=== PATIENT | male | born 1960 | race Caucasian/White ===

== ENCOUNTER → 2023-12-28 | Outpatient (CLI) | payer OTHER ==
[2023-12-28 12:30] LABS: Partial Thromboplastin Time 22.9 sec (22.0-30.0); Prothrombin Time 10.7 sec (10.0-12.5)
[2023-12-28 16:10] LABS: Appearance,Urine Clear (Clear); Bilirubin,Urine Negative (Negative); Blood,Urine Negative (Negative); Color,Urine Yellow (Yellow); Ketones,Urine Negative (Negative); Nitrite,Urine Negative (Negative); Urobilinogen,Urine 0.2 E.U./DL
[2023-12-28 16:16] LABS: BUN/Creat Ratio 24.75 Ratio (12.00-20.00); Blood Urea Nitrogen 19.8 mg/dL (9.0-27.0); Chloride 105 mmol/L (96-109); Glucose 169 mg/dL (70-110); Sodium 139 mmol/L (135-145)
[2023-12-28 16:22] LABS: Basophils # (A) 0.08 X 10*3/uL (0.00-0.10); Basophils % (A) 1.2 %; Eosinophils # (A) 0.18 X 10*3/uL (0.04-0.35); Eosinophils % (A) 2.7 %; HCT 45.6 % (39.6-50.0); HGB 15.7 g/dL (13.0-17.0); Lymphocytes # (A) 2.04 X 10*3/uL (0.90-5.00); Lymphocytes % (A) 31.1 %; MCH 29.7 pg (27.0-32.0); MCHC 34.4 g/dL (32.0-37.0); MCV 86.4 FL (80.0-97.0); Mean Platelet Volume 12.3 FL (9.5-12.2); Monocytes # (A) 0.69 X 10*3/uL (0.20-1.00); Monocytes % (A) 10.5 %; NRBC Per 100 WBC 0 X 10*3/uL (0.00-0.01); Neutrophils # (A) 3.56 X 10*3/uL (1.80-7.70); Neutrophils % (A) 54.2 %; Platelet Count 155 X 10*3/uL (140-440); RBC 5.28 X 10*6/uL (4.40-5.60); RDW 12.7 % (11.5-14.5); WBC 6.57 X 10*3/uL (4.50-10.00)
== END | disposition home or self-care (01) ==
LOC: LABPAT 11:44
PROVIDERS: ATTEND Orthopaedic Surgery Orthopaedic Surgery of the Spine
DX: Z01.812 Encounter for preprocedural laboratory examination (principal); Z22.322 Carrier or suspected carrier of Methicillin resistant Staphylococcus aureus; M48.061 Spinal stenosis, lumbar region without neurogenic claudication
CPT/HCPCS: 36415; 80048; 81003; 85025; 85610; 85730; 87070

== ENCOUNTER → 2024-01-03 | Outpatient (CLI) | payer OTHER ==
--- NOTE | 2024-01-03 10:54 | XR ---
EXAMINATION TYPE: XR chest 2V DATE OF EXAM: 01/03/2024 10:36 AM CLINICAL INDICATION:Male, 63 years old with history of Z01.818; [facility] COMPARISON: Chest radiographs from 01/03/2024 TECHNIQUE: XR chest 2V Frontal and lateral views of the chest. FINDINGS: Lungs/Pleura: There is no evidence of pleural effusion, focal consolidation, or pneumothorax. Pulmonary vascularity: Unremarkable. Heart/mediastinum: Cardiomediastinal silhouette is unremarkable. Musculoskeletal: No acute osseous pathology. IMPRESSION: No acute cardiopulmonary disease/process.
== END | disposition home or self-care (01) ==
LOC: LABPAT 10:15
PROVIDERS: ATTEND Orthopaedic Surgery Orthopaedic Surgery of the Spine
DX: Z01.812 Encounter for preprocedural laboratory examination (principal); Z22.322 Carrier or suspected carrier of Methicillin resistant Staphylococcus aureus; M48.00 Spinal stenosis, site unspecified
CPT/HCPCS: 71046; 86850; 86900; 86901

== ENCOUNTER 2024-01-12 05:41 | Observation (INO) | payer OTHER ==
[2024-01-07 15:45] VITALS: BMI 34.4
[2024-01-12] MEDS ORDERED: LIDOCAINE 1% (10MG/ML) FOR IV START INTRADERMA PRN (06:08)
[2024-01-12] MEDS: LACTATED RINGERS 1,000 ML IV SCH (06:16)
[2024-01-12 06:47] LABS: Glucose,Whole Blood 224 mg/dL (70-110)
[2024-01-12] MEDS: ONDANSETRON 4 MG/2 ML VIAL IVP ONE (06:53)
[2024-01-12] MEDS: INSULIN ASPART (NovoLOG) 100 UNIT/ML VIAL SQ ONE (06:58)
[2024-01-12] MEDS ORDERED: PHENYLEPHRINE-0.9% NACL SYG 1,000 MCG/10 ML SYRINGE ONE (07:25)
[2024-01-12] MEDS ORDERED: TRANEXAMIC 1,000 MG/100ML-NACL PREMIX BAG ONE (07:25)
[2024-01-12] MEDS ORDERED: NEOSTIGMINE 1 MG/ML 10 ML VIAL ONE (07:25)
[2024-01-12] MEDS ORDERED: SUCCINYLCHOLINE CHLORIDE 200 MG/10 ML VIAL IV ONE (07:25)
[2024-01-12] MEDS ORDERED: GLYCOPYRROLATE 0.2 MG/ML 2 ML VIAL ONE (07:25)
[2024-01-12] MEDS ORDERED: PROPOFOL 10 MG/ML 20 ML VIAL IV ONE (07:25)
[2024-01-12] MEDS ORDERED: LIDOCAINE 1% INJ 10MG/ML (20 ML MDV) ONE (07:25)
[2024-01-12] MEDS ORDERED: ROCURONIUM 10 MG/ML (5 ML VIAL) IV ONE (07:25)
[2024-01-12] MEDS ORDERED: fentaNYL (PF) 50 MCG/ML 2 ML AMP ONE (07:25)
[2024-01-12] MEDS ORDERED: METOPROLOL TARTRATE 5 MG/5 ML VIAL IVP ONE (07:25)
[2024-01-12] MEDS ORDERED: HYDROmorphone (PF) 1 MG/ML ONE (07:25)
[2024-01-12] MEDS ORDERED: MIDAZOLAM 2 MG/2 ML VIAL ONE (07:25)
[2024-01-12] MEDS ORDERED: KETAMINE HCL IN 0.9 % NACL 50 MG/5 ML SYRINGE ONE (07:25)
[2024-01-12] MEDS: ceFAZolin 1,000 MG in SODIUM CHLORIDE 0.9% IRRIGATIO 1,000 ML IRRIGATION PRN (07:30)
[2024-01-12] MEDS: BUPIVACAINE (PF) 0.25% 30 ML VIAL SQ ONE ×2 (07:54→08:02)
[2024-01-12] MEDS: LIDOCAINE 2%-EPI 1:100,000 20 ML VIAL SQ ONE ×2 (07:54→08:02)
[2024-01-12] MEDS: THROMBIN (BOVINE) 5,000 UNIT VIAL MISCELLANE ONE (07:54)
[2024-01-12 08:43] LABS: Glucose,Whole Blood 175 mg/dL (70-110)
[2024-01-12] MEDS: LACTATED RINGERS 1,000 ML IV ONE ×2 (08:50→11:53)
[2024-01-12] MEDS ORDERED: BENZOCAINE/MENTHOL LOZENG 1 EACH LOZENGE MUCOUS MEM PRN (11:50)
[2024-01-12] MEDS ORDERED: HYDROmorphone 0.5 MG/0.5 ML SYRINGE IVP PRN (11:50)
[2024-01-12] MEDS ORDERED: ONDANSETRON 4 MG/2 ML VIAL IVP PRN (11:51)
[2024-01-12] MEDS ORDERED: SENNOSIDES-DOCUSATE SODIUM 1 EACH TAB PO PRN (11:51)
[2024-01-12] MEDS ORDERED: ACETAMINOPHEN TAB 325 MG TAB PO PRN (11:53)
[2024-01-12] MEDS ORDERED: traMADol 50 MG TAB PO PRN (11:53)
--- NOTE | 2024-01-12 12:02 | P.OP ---
Date of Procedure: 01/12/24 Preoperative Diagnosis: Spinal stenosis L4-5 L5-S1, facet arthrosis L4-5 L5-S1, degenerative disc disease L4-5 L5-S1, disc herniation L4-5 L5-S1, lower extremity radiculopathy, neurogenic claudication, low back pain Postoperative Diagnosis: Same Anesthesia: GETA Pathology: none sent Condition: stable Disposition: PACU Description of Procedure: DESCRIPTION OF PROCEDURE(S): BRIEF OPERATIVE NOTE Preoperative Diagnosis: Spinal stenosis L4-5 L5-S1, facet arthrosis L4-5 L5-S1, degenerative disc disease L4-5 L5-S1, disc herniation L4-5 L5-S1, lower extrem ity radiculopathy, neurogenic claudication, low back pain Postoperative Diagnosis: Spinal stenosis L4-5 L5-S1, facet arthrosis L4-5 L5-S1, degenerative disc disease L4-5 L5-S1, disc herniation L4-5 L5-S1, lower extremity radiculopathy, neurogenic claudication, low back pain Procedure: Laminectomy and wide decompression with bilateral foraminotomies L4-5 L5-S1 Computer CT navigation aided Minimally invasive Posterior lateral decompression and facet fusion L4-5 L5-S1 Minimally invasive Transforaminal lumbar interbody fusion for a 360 fusion L4-5 Discectomy for decompression L4-5 Placement of interbody graft L4-5 Use of computer navigation for fusion L4-5 S1 Local autogenous bone grafting Aspiration of bone marrow from the vertebral body pedicle L4 on the right Use of bone graft extenders Surgeon: Dr. Moran Medical Pathology Teacher: Magdi BERNSTEIN who is present throughout the entire the case persistence during positioning, dissection, exposure, visualization, and all crucial elements of the case as well as closure. Anesthesia: General anesthesia Estimated blood loss: Approximately 150 mL Complications: None apparent Components implanted: K2M Ledy minimally invasive Orgas pedicle screw system withscrews measuring 6.5 mm in diameter to rods one expandable interbody cage with 10 mL of osteo amp bio4 bone graft substitute and 30 mL of the BX bone fibers to supplement the local autogenous bone graft and bone marrow aspirate Disposition: To recovery room in good stable condition. OPERATIVE INDICATIONS The patient is a pleasant 63-year-old male and has had severe issues at their lower extremity in her lower back over the past several years with significant worsening over the past several months. Over the past few months the patient had pain at their back and their lower extremities. The patient is having severe radicular symptoms at their lower extremity with weakness. Had worsening symptoms particular on the left greater than the right. The patient is having significant pain in their back. They are unable to obtain any comfort. We did aggressive conservative treatment with medications therapy and interventional pain management however thery were not having any relief. The patient also showed evidence of a severe stenosis particularly at L4-5 and at the foramen at L5-S1 with disc protrusion at each level contributing to the stenosis. The patient has been through conservative treatment. He was not having any prolonged benefit despite aggressive conservative care we discussed various treatment options including surgery, and the patient wishes to proceed with surgery We discussed the risk, patient's alternatives and benefits of surgery including but not limited to, risk of bleeding risk of infection, risk of need for further surgery, risk of decreased, loss of motion, muscle function, malunion nonunion, hardware failure, nerve damage, paralysis, heart attack, blindness and . They understood issues with the current pandemic and the possibility of exposure. OPERATIVE SUMMARY After discussing all the risks, patient alternatives and benefits at length, the patient elected to proceed with surgical intervention, signed informed consent, and presented for their procedure. The patient was seen and examined in the preoperative holding area and the surgical site was marked. The patient was given antibiotics and brought to the operating room. The patient was sedated and intubated by anesthesia in standard fashion. The patient was positioned on to the operating room table in a prone position on the appropriate frame which was well-padded and well molded. We were careful to pad any bony prominences and pressure points. We were careful to maintain the patient's cervical spine and good neutral alignment and position throughout. The patient was prepped and draped in a normal standard fashion. An appropriate timeout and keystone protocol performed. We were able to proceed with the surgery. The local wound area was infiltrated with local anesthetic. Over the right iliac crest I was able to make small stab incisions and establish a guidepin screw fixation to the iliac crest 2 on the right. I was able place the computer referencing device over the guidepins to establish an appropriate reference point for the Ziem CT navigation. We then were able to place patient in an appropriate drape and do a navigation spin for visualization and 3-D reconstruction of the lumbar spine. I was able utilize C-arm guidance and navigation to establish appropriate position over the pedicles bilaterally at the appropriate levels at L4-L5 and S1. With the appropriate levels confirmed was able to make small incisions over the appropriate pedicle sites bilaterally. Utilizing the computer navigation device I was able to establish bony landmarks at the right iliac crest for a bony reference point for the navigation device. I was able to establish a Jamshidi needle over the lateral aspect of the pedicle and advanced the trocar into the pedicle being careful not to breech superiorly inferiorly medially or laterally using computer navigation device. Position was confirmed regularly with AP and lateral images on C-arm and with the computer navigation device at the appropriate levels bilaterally. I was able to establish the trocar into the pedicle appropriately into the posterior aspect of the vertebral body bilaterally at the appropriate levels. This was done at each of the pedicle positions and each of the vertebrae. At the superior vertebrae I was able to take approximately 15 mL of bone aspiration for use later in the case to supplement the allograft and autograft bone. I was able place the guidewire into the trocar and into the vertebral body appropriately under C-arm guidance. Dissection was taken down over the wire to the appropriate starting position for the screw placed. The appropriate length screw was chosen, threaded over the guidewire and screwed appropriately into the pedicle and vertebral body under C-arm guidance in excellent alignment and position with good bony purchase. At the S1 screw on the right we did a second spin to evaluate as it had some stimulation and had to reposition the screw. It had excellent alignment position with excellent bony purchase and no evidence of further stimulation at 20 mA. All of the screws were checked and found to have good alignment position and no evidence of stimulation this is done at each of the screw sites at the appropriate levels at L4-L5 and S1. With the screws intact I extended the incision to connect the screw hole sites on the most symptomatic side on the left. I dissected down to establish access over the pars and lamina to the base of the spinous process. I was able to expose the facet joint. The capsule the facet was taken down and showed some facet arthrosis at the joint. I was able to use a combination of curettes and Kerrison rongeurs and a high-speed drill to take down the facet joint and do a facetectomy. I was able get excellent foraminal decompression and central decompression with undermining across midline to perform a laminectomy centrally and contralaterally. I was able get good central decompression. The ligamentum flavum was taken down to further decompress centrally and at bilateral neural foramen. I was able to expose the disc space and visualize the traversing nerve root. Note was made of some disc protrusion and disc herniation that was abutting the traversing nerve root at the level causing further compression of the nerve root. I was able to establish a annulotomy at the appropriate level protecting soft tissue and neural structures. Note was made of some disc desiccation at the disc. There is disc herniation and I had to perform further decompression of the disc beyond that of discectomy for the fusion. I performed a complete discectomy with accommodation of curettes and rasps and scrapers. I was able get good endplate preparation at the disc space. I sized for the appropriate size interbody spacer protecting the soft tissue and neural structures. The wound was copiously irrigated and suctioned dry. There is no evidence of any dural tear or leak. I was able to pack the disc space with local autogenous bone graft as well as a small amount of bone graft which was also placed into the interbody cage itself. Protecting the soft tissue structures and neural structures I was able place the interbody cage in good alignment and good position with good fit and fill at the interbody space. Position was confirmed with C-arm guidance. At L5-S1 the vertebrae was seated deep into the pelvis. There is considerable disc loss and near complete disc height collapse. I was not able to access the disc at L5-S1 though I was able to get good bilateral laminectomy and decompression with foraminotomy and partial facetectomy to get decompression over the foramen and nerve roots. I felt we had good stability with the screws and with the inaccessibility of the disc, as well as the good decompression, I chose to forego the TLIF at L5-S1. Good hemostasis maintained. There is no evidence of any dural tear or leak. The wound was irrigated and suctioned dry. With the hardware intact, intraoperative C-arm imaging was again taken which showed good alignment and position of the hardware at the appropriate levels at L4-L5 and S1. We were then able to measure, contour and place the rods and appropriate hardware bilaterally. I was able to place capcrews, tighten them down, and torque them with the torque screwdriver appropriately. With this intact I was able to place the local autogenous bone graft with additional bone graft enhancer as necessary into the posterior lateral gutters over the decorticated transverse processes and facet joints on the contralateral side. The remainder of the bone graft was placed over the facet joint on the contralateral side after taking down the facet joint capsule. With the bone graft intact, a stable construct, and good decompression at the appropriate levels from L4-S1, we were able to proceed with closure. Good hemostasis was maintained. There is no evidence of dural tear or leak. The fascia was closed for a watertight closure. he subcuticular tissue was closed with absorbable suture. The wound was cleaned and dried and dressed with the appropriate dressing. The drapes were broken down. The patient was gently rolled back onto their hospital bed being careful to maintain their cervical spine and good neutral alignment and position. They were woken up by anesthesia, extubated, and brought to the recovery room in good stable condition. The patient will be admitted to the hospital for appropriate postoperative care, medical management and monitoring. We will continue to follow them closely about the postoperative course.
[2024-01-12 12:13] LABS: Glucose,Whole Blood 175 mg/dL (70-110)
[2024-01-12] MEDS: HYDROmorphone 0.5 MG/0.5 ML SYRINGE IVP PRN (13:29)
[2024-01-12] MEDS: LACTATED RINGERS 950 ML IV ONE (13:52)
[2024-01-12] MEDS: CYCLOBENZAPRINE 10 MG TAB PO PRN (14:34)
[2024-01-12] MEDS ORDERED: DEXTROSE 50% SYRINGE 50 ML IVP PRN ×2 (14:57)
--- NOTE | 2024-01-12 15:10 | P.CONS ---
History of Present Illness - Reason for Consult Consult date: 01/12/24 - History of Present Illness Patient is a 63-year-old male with bzj-evugsyz-zujkidlpx diabetes mellitus type 2, hypertension, and dyslipidemia who presented to the hospital for elective L4- S1 decompression and fusion due to spinal stenosis. He tolerated the procedure well without any postoperative complications. Patient seen and examined at bedside with family present. He complains that his back feels tight and like he needs to stand and stretch. He denies any lightheadedness, dizziness, chest pain, shortness of breath. He denies any recent illnesses such as cough, cold, fever, flu, vomiting, diarrhea. His diabetes is typically fairly well-controlled. Most of his random blood sugars are near 160 but sometimes can get up to 220. He states his last A1c was around 7.5. Vital signs reviewed General: nontoxic, mild distress due to pain, appears at stated age Derm: warm, dry Eyes: EOMI, no lid lag, anicteric sclera ENT: Nose and ears atraumatic Cardiovascular: S1S2 reg, no murmur, no edema Lungs: clear to auscultation bilateral, no rhonchi, no rales, no wheeze, no accessory muscle use Abdominal: soft, nontender to palpation, no guarding Ext: no gross muscle atrophy, no contractures Neuro: CN II-XII grossly intact, No focal neuro deficits Psych: Alert, oriented, appropriate affect Assessment/Plan: 63-year-old male status post L4-S1 decompression and fusion Diabetes mellitus type 2 -Hold metformin and glipizide. -Sliding scale insulin -Follow blood sugars -Consistent carb diet -As blood sugar improves anticipate resuming metformin and Glucophage Hypertension Dyslipidemia -Losartan/hydrochlorothiazide 50-12.51 tablet daily -Fenofibrate 160 mg daily -Lipitor 10 mg daily Class II obesity Imaging: None new Data Review: Labs reviewed with preop hemoglobin 15.7 and creatinine 0.8 Thank you for allowing us to participate in the care of this pleasant patient. Do not hesitate to contact us with questions. Someone can be reached from the [facility] hospitalist group all hours of the day at [phone] or via [email or web address]. This dictation was prepared using [employer] voice recognition software. Though every attempt is made to correct errors during dictation some may still exist. Past Medical History Past Medical History: Diabetes Mellitus, Hyperlipidemia, Hypertension, Prostate Disorder Additional Past Medical History / Comment(s): elevated PSA-shadow on prostate,spinal stenosis History of Any Multi-Drug Resistant Organisms: None Reported Past Surgical History: Cholecystectomy, Hernia Repair Additional Past Surgical History / Comment(s): prostate bx 01-04-24,umbilical hernia repair Past Anesthesia/Blood Transfusion Reactions: No Reported Reaction Additional Past Anesthesia/Blood Transfusion Reaction / Comm: no hx blood transfusion Past Psychological History: No Psychological Hx Reported Smoking Status: Never smoker Past Alcohol Use History: Occasional - Past Family History Mother Family Medical History: Cancer Father Family Medical History: Cancer Medications and Allergies Home Medications Medication Instructions Recorded Confirmed Type Acetaminophen [Tylenol Arthritis] 650 mg PO Q8H PRN 01/07/24 01/12/24 History Ascorbic Acid [Vitamin C] 1,000 mg PO DAILY 01/07/24 01/12/24 History Aspirin 81 mg PO DAILY 01/07/24 01/12/24 History Cholecalciferol [Vitamin D3 (25 25 mcg PO DAILY 01/07/24 01/12/24 History Mcg = 1000 Iu)] Ezetimibe/Simvastatin 1 each PO DAILY 01/07/24 01/12/24 History [Ezetimibe/Simvastatin 10-20 mg] Fenofibrate 160 mg PO DAILY 01/07/24 01/12/24 History Losartan-Hctz 50-12.5 mg [Hyzaar 1 tab PO DAILY 01/07/24 01/12/24 History 50-12.5] Meloxicam [Mobic] 15 mg PO DAILY 01/07/24 01/12/24 History Multivitamins, Thera [Multivitamin 1 tab PO DAILY 01/07/24 01/12/24 History (formulary)] Tamsulosin HCl [Flomax] 0.4 mg PO HS 01/07/24 01/12/24 History glipiZIDE [Glucotrol] 10 mg PO AC-BID 01/07/24 01/12/24 History metFORMIN HCL 500 mg PO BID 01/07/24 01/12/24 History traMADol HCl [Ultram] 50 mg PO Q6HR PRN 01/07/24 01/12/24 History Allergies Allergy/AdvReac Type Severity Reaction Status Date / Time No Known Allergies Allergy Verified 01/12/24 06:15 Physical Exam Osteopathic Statement: *. No significant issues noted on an osteopathic structural exam other than those noted in the History and Physical/Consult. Vitals: Vital Signs Temp Pulse Resp BP Pulse Ox 01/12/24 14:07 101 H 16 147/82 92 L 01/12/24 13:50 95 01/12/24 13:45 102 H 13 157/86 100 01/12/24 13:30 106 H 17 138/80 100 01/12/24 13:15 102 H 16 161/88 98 01/12/24 13:00 105 H 16 160/98 99 01/12/24 12:48 107 H 16 136/77 98 01/12/24 12:33 107 H 15 148/93 97 01/12/24 12:18 104 H 14 122/83 97 01/12/24 12:03 99 F 101 H 16 151/88 90 L 01/12/24 06:35 97.2 F L 98 18 159/84 97 Intake and Output 01/12/24 01/12/24 01/12/24 06:59 14:59 22:59 Intake Total 200 4850 Output Total 600 Balance 200 4250 Intake: IV 200 4850 Output: Urine 450 Estimated Blood Loss 150 Other: Weight 99.6 kg 99.6 kg Results Labs: Abnormal Lab Results - Last 24 Hours (Table) 01/12/24 01/12/24 01/12/24 Range/Units 06:43 08:41 12:11 POC Glucose (mg/dL) 224 H 175 H 175 H (70-110) mg/dL
[2024-01-12 16:28] LABS: Glucose,Whole Blood 178 mg/dL (70-110)
[2024-01-12] MEDS: HYDROmorphone 1 MG/ML 1 ML SYRINGE IVP PRN (16:53)
[2024-01-12] MEDS: INSULIN ASPART (NovoLOG) 100 UNIT/ML VIAL SQ SCH (16:54)
[2024-01-12] MEDS ORDERED: metFORMIN 500 MG TAB PO SCH (17:30)
[2024-01-12] MEDS ORDERED: glipiZIDE 10 MG TAB PO SCH (17:30)
[2024-01-12 20:12] LABS: Glucose,Whole Blood 200 mg/dL (70-110)
--- NOTE | 2024-01-12 20:50 | FL ---
EXAMINATION TYPE: FL guidance operating room, XR lumbar spine 2 or 3V DATE OF EXAM: 01/12/2024 Comparison: None Clinical History: 63-year-old male L4-5/L5-S1 Fusion Findings: L4-5/L5-S1 Fusion Dr. Moran 44sec fluoro time 8 images provided. Impression: Intraoperative fluoroscopy as above.
[2024-01-12] MEDS: TAMSULOSIN 0.4 MG CAP.ER.24H PO SCH (20:54)
[2024-01-12] MEDS: SODIUM CHLORIDE 0.9% 1,000 ML IV SCH (21:06)
[2024-01-12] MEDS: HYDROcodone/APAP 5-325MG 1 EACH TAB PO PRN (23:03)
[2024-01-13 06:09] LABS: Glucose,Whole Blood 205 mg/dL (70-110)
--- NOTE | 2024-01-13 07:59 | P.PN ---
Progress Note - Text Progress Note Date: 01/13/24 Postoperative day #1 Patient is seen and examined today at bedside. The patient has some pain around the surgical site as expected. Pain is being controlled with medication. He is not having any nausea or vomiting. He says that the Das got kinked last night but it is flowing fine now. He has been up to a chair yesterday. He has not yet been up with physical therapy. He feels his legs are doing well Physical Exam Afebrile with stable vital signs Abdomen is soft nontender. Chest has good excursion deep and space expiration The incision site is clean dry and intact. No erythema there is no purulence. Extremities have not had neurologic change from prior to surgery. Dressings are intact without saturation Calves and thighs were soft nontender without evidence of DVT. He has sustained dorsiflexion plantarflexion EHL intact Assessment/Plan Postoperative day #1 status post minimally invasive decompression and fusion L4- 5 L5-S1 for his severe spinal stenosis with neurogenic claudication and radiculopathy Patient is progressing as expected from the surgery. We will try to get the Das out today so that he can start to urinate on his own. We will continue to increase the patient's mobilization with therapy. We will continue pain control with oral or IV medications. Hopefully he will get more mobile and the pain will be controlled for discharge home in a day or 2. We'll continue to follow patient closely.
[2024-01-13] MEDS: ASPIRIN 81 MG PO SCH (08:51)
[2024-01-13] MEDS: SENNOSIDES-DOCUSATE SODIUM 1 EACH TAB PO SCH (08:51)
[2024-01-13] MEDS: MULTIVITAMINS, THERA 1 EACH TAB PO SCH (08:51)
[2024-01-13] MEDS: CHOLECALCIFEROL 25 MCG (1000 IU) TABLET PO SCH (08:51)
[2024-01-13] MEDS: LOSARTAN-HCTZ 50-12.5 MG 1 EACH TAB PO SCH (08:51)
[2024-01-13] MEDS: EZETIMIBE 10 MG TAB PO SCH (08:51)
[2024-01-13] MEDS: ASCORBIC ACID 500 MG TAB PO SCH (08:52)
[2024-01-13] MEDS: FENOFIBRATE 160 MG TAB PO SCH (08:52)
[2024-01-13] MEDS: ATORVASTATIN 10 MG TAB PO SCH (08:52)
[2024-01-13 10:58] LABS: BUN/Creat Ratio 14.11 Ratio (12.00-20.00); Basophils # (A) 0.04 X 10*3/uL (0.00-0.10); Basophils % (A) 0.4 %; Blood Urea Nitrogen 12.7 mg/dL (9.0-27.0); Calcium 9.2 mg/dL (8.7-10.3); Carbon Dioxide 23.4 mmol/L (21.6-31.8); Chloride 103 mmol/L (96-109); Eosinophils % (A) 0.9 %; Glucose 209 mg/dL (70-110); HCT 40.6 % (39.6-50.0); HGB 13.8 g/dL (13.0-17.0); Lymphocytes # (A) 1.23 X 10*3/uL (0.90-5.00); Lymphocytes % (A) 11.3 %; MCH 29.7 pg (27.0-32.0); MCV 87.3 FL (80.0-97.0); Mean Platelet Volume 11.9 FL (9.5-12.2); Monocytes # (A) 1.35 X 10*3/uL (0.20-1.00); Monocytes % (A) 12.4 %; NRBC Per 100 WBC 0 X 10*3/uL (0.00-0.01); Neutrophils # (A) 8.13 X 10*3/uL (1.80-7.70); Neutrophils % (A) 74.6 %; Platelet Count 137 X 10*3/uL (140-440); Potassium 3.8 mmol/L (3.5-5.5); RBC 4.65 X 10*6/uL (4.40-5.60); RDW 13.1 % (11.5-14.5); Sodium 139 mmol/L (135-145); WBC 10.89 X 10*3/uL (4.50-10.00)
[2024-01-13 11:36] LABS: Glucose,Whole Blood 256 mg/dL (70-110)
--- NOTE | 2024-01-13 14:02 | P.PN ---
Subjective Progress Note Date: 01/13/24 Hospital course: Patient is a very pleasant 63-year-old male with mci-ntqpxqs-vqcveydve diabetes mellitus type 2, hypertension, and dyslipidemia who presented to the hospital for elective L4-S1 decompression and fusion due to spinal stenosis. He tolerated the procedure well without any postoperative complications. Physical exam: Patient seen and fully evaluated at bedside this morning. Patient reports ambulating in the [place] with physical therapy. He currently appears to be having moderate pain. Das catheter remains in place, discussed with RN pulling Das catheter to perform voiding challenge and patient's need for pain medication at this time. Vital signs reviewed and stable. General: Nontoxic, no distress and appears stated age. Derm: Skin warm and dry, normal coloration for ethnicity. Head: Atraumatic, normocephalic and symmetric. Eyes: EOMs intact, no lid lag, and anicteric sclera Mouth: no lip lesions, mucus membranes moist Cardiovascular: Tachycardic rate and regular rhythm with normal S1S2, no murmur, positive posterior tibial pulses bilaterally, and cap refill < 2 seconds. Lungs: Respirations even, regular, and unlabored on room air. Lungs CTA bilaterally, no rhonchi, no rales, no wheezing, and no accessory muscle usage. Abdominal: soft, nontender to palpation, no guarding, no appreciable organomegaly. Das catheter in place. Ext: ROM intact. No gross muscle atrophy, no edema, no contractures Neuro: Speech clear, face symmetrical and CN II-XII grossly intact with no noted focal neuro deficits Psych: Alert and oriented to person, place, time, and situation. Appropriate and pleasant affect. Assessment and Plan of Care: 63-year-old male status post L4-S1 decompression and fusion -Management by primary admitting orthospine surgery team including DVT prophylaxis, pain management, wound/dressing management, and PT/OT. Diabetes mellitus type 2 with hyperglycemia -Continue to hold metformin and glipizide and maintain glycemic protocol with NovoLog sliding scale. -Consistent carb diet -Hemoglobin A1c 7.9%. -As blood sugar improves anticipate resuming metformin and Glucophage Postoperative Tachycardia -Patient with postoperative tachycardia. -Appears regular, patient asymptomatic of chest pain or any other cardiac com plaints. -Order placed for telemetry monitoring and EKG to further evaluate. Postoperative thrombocytopenia -Preoperative platelet count was 155 and postoperative platelet count is 137. Stable, no need for intervention or further orders at this time. Hypertension Dyslipidemia -Continue daily medication regimen with losartan/hydrochlorothiazide 50-12.51 mg tablet daily, Fenofibrate 160 mg daily, and Lipitor 10 mg daily Class II obesity with BMI of 34.4 kg/m Imaging: -No new imaging to review. Data Reviewed: -Vital signs reviewed. Blood pressure 135/79, heart rate 112, respiratory rate 17, temp 98.7 F, and SpO2 of 95% on room air -Postoperative Labs reviewed. CBC showing preop hemoglobin 15.7 and postoperative hemoglobin of 13.8, Preoperative platelet count of 155 and postoperative platelet count of 137. BMP showing slightly elevated anion gap of 12.6 otherwise normal findings. Blood glucose was elevated again this morning at 209. Hemoglobin A1c 7.9%. Thank you for allowing us to participate in the care of this pleasant patient. Do not hesitate to contact us with questions. Someone can be reached from the [facility] hospitalist group all hours of the day at [phone] or via perfect serve. Patient was seen independently by Nurse Pracitioner. This document was prepared using [employer] dictation software. Please allow for errors in stave log cut off saw operator, while rare they do occur. I reviewed the documentation as provided by the LEX above, who is the original author of this note. I agree with the documented assessment and plan, with the following changes: none Objective - Vital Signs Vital signs: Vital Signs Temp 98.1 F 01/13/24 02:00 Pulse 115 H 01/13/24 02:00 Resp 13 01/13/24 02:00 BP 143/86 01/13/24 02:00 Pulse Ox 98 01/13/24 02:00 FiO2 Intake & Output 01/12/24 01/13/24 01/13/24 18:59 06:59 18:59 Intake Total 4850 Output Total 600 Balance 4250 Weight 99.6 kg Intake: IV 4850 Output: Urine 450 Estimated Blood Loss 150 Other: Voiding Method Indwelling Catheter - Labs CBC & Chem 7: 01/13/24 07:30 01/13/24 07:30 Labs: Abnormal Lab Results - Last 24 Hours (Table) 01/12/24 01/12/24 01/12/24 Range/Units 08:41 12:11 16:27 POC Glucose (mg/dL) 175 H 175 H 178 H (70-110) mg/dL 01/12/24 01/13/24 Range/Units 20:10 06:07 POC Glucose (mg/dL) 200 H 205 H (70-110) mg/dL
[2024-01-13 16:53] VITALS: RESP 18
[2024-01-13 16:57] LABS: Glucose,Whole Blood 207 mg/dL (70-110)
[2024-01-13] MEDS: HYDROcodone/APAP 7.5-325MG 1 EACH TAB PO PRN (18:22)
[2024-01-13] MEDS: traMADol 50 MG TAB PO PRN (20:05)
[2024-01-13 20:38] LABS: Glucose,Whole Blood 195 mg/dL (70-110)
[2024-01-14 05:46] LABS: Glucose,Whole Blood 192 mg/dL (70-110)
[2024-01-14 08:08] VITALS: BP 128/78; PULSE 106; TEMP 98
--- NOTE | 2024-01-14 08:36 | P.DS ---
Providers Date of admission: 01/13/24 07:36 Expected date of discharge: 01/14/24 Attending physician: Que Moran Consults: 01/12/24 11:51 Consult Physician Routine Consulting Provider: Taylor De La O Consult Reason/Comments: Medical management Do you want consulting provider notified?: Yes Primary care physician: Rio Fitzpatrick MD - Discharge Diagnosis(es) (1) Status post lumbar spinal fusion Current Visit: Yes Status: Acute (2) Spinal stenosis, lumbar region with neurogenic claudication Current Visit: Yes Status: Acute (3) Lumbar facet arthropathy Current Visit: Yes Status: Acute (4) Lumbar degenerative disc disease Current Visit: Yes Status: Acute (5) Lumbar herniated disc Current Visit: Yes Status: Acute (6) Radiculopathy with lower extremity symptoms Current Visit: Yes Status: Acute (7) Low back pain Current Visit: Yes Status: Acute (8) Hypertension Current Visit: Yes Status: Acute (9) Hyperlipidemia Current Visit: Yes Status: Acute (10) Type 2 diabetes mellitus Current Visit: Yes Status: Acute (11) Obesity (BMI 30.0-34.9) Current Visit: Yes Status: Acute Hospital Course: This is a pleasant 63-year-old male who presented with L4-5 and L5-S1 spinal stenosis, facet arthrosis, degenerative disc disease, and disc herniation with lower extremity radiculopathy, neurogenic claudication, and low back pain who failed outpatient conservative therapy. He was admitted for an L4-5 and L5-S1 minimally invasive posterior lateral decompression and fusion with transforaminal lumbar interbody fusion. The patient tolerated the procedure well and did well postoperatively. He has been able to mobilize independently with assistance of a walker without difficulty. He does have a walker for home. He is very happy with his progress. His back pain has been adequately controlled. He is not complaining of any lower extremity weakness or radiculopathy. He feels he is ready for discharge today. Condition on day of discharge stable. Patient will be discharged home. Patient was cleared preoperatively for surgery by Dr. Fitzpatrick. Patient currently denies any nausea, vomiting, fever, or chills. Patient is eating and voiding freely without difficulty. Patient may shower Optifoam dressing intact. Patient may remove Optifoam dressing on Wednesday and shower without a dressing at that time. Patient should refrain from driving until at least after their first follow-up appointment in the office. Patient should avoid excessive bending, lifting, and twisting; no lifting greater than 10 pounds. MAPS has been reviewed today, 01/14/2024, with an Overall Overdose Risk Score of 280. An "Opiod Start Talking" Form has been signed and placed in the patient's chart. A prescription has been written for hydrocodone 7.5 mg / 325 mg, 1 tab, every 4 hours, as needed for acute pain, dispense #42. Prescriptions were also sent for cyclobenzaprine 10 mg, 1 tab, 3 times daily, as needed for muscle spasm, dispense #60 and Senokot-S, 1 tab, twice daily, as needed for constipation, dispense #60. Prescriptions are sent to the [facility] pharmacy located within [facility] per request of the patient. Patient's other medical diagnoses include hypertension, hyperlipidemia, type 2 diabetes. Patient should avoid anti-inflammatory medications over the next 6 weeks postoperatively. Patient should avoid tramadol while taking hydrocodone. Physical Exam on day of discharge: Patient is awake, alert, and oriented 3 Vital signs stable Good chest excursion with deep inspiration and expiration Abdomen soft nontender No signs or symptoms of DVT; no calf pain Extensor hallucis longus, plantarflexion, and dorsiflexion positive sustained bilateral lower extremities Incision is clean, dry, and intact; no erythema, purulence, or signs of infe ction Optifoam dressings intact Procedures: L4-5 and L5-S1 minimally invasive posterior lateral decompression and fusion with transforaminal lumbar interbody fusion Patient Condition at Discharge: Stable Plan - Discharge Summary Discharge Rx Participant: No New Discharge Prescriptions: New Cyclobenzaprine [Flexeril] 10 mg PO TID PRN #60 tab PRN Reason: Muscle Spasm HYDROcodone/APAP 7.5-325MG [[place] 7.5-325] 1 each PO Q4HR PRN #42 tab PRN Reason: Pain Sennosides-Docusate Sodium [Senokot-S] 1 tab PO BID PRN #60 tablet PRN Reason: Constipation No Action Cholecalciferol [Vitamin D3 (25 Mcg = 1000 Iu)] 25 mcg PO DAILY Multivitamins, Thera [Multivitamin (formulary)] 1 tab PO DAILY traMADol HCl [Ultram] 50 mg PO Q6HR PRN PRN Reason: Pain Tamsulosin HCl [Flomax] 0.4 mg PO HS Losartan-Hctz 50-12.5 mg [Hyzaar 50-12.5] 1 tab PO DAILY Fenofibrate 160 mg PO DAILY Ezetimibe/Simvastatin [Ezetimibe/Simvastatin 10-20 mg] 1 each PO DAILY Aspirin 81 mg PO DAILY Ascorbic Acid [Vitamin C] 1,000 mg PO DAILY Acetaminophen [Tylenol Arthritis] 650 mg PO Q8H PRN PRN Reason: Pain Meloxicam [Mobic] 15 mg PO DAILY glipiZIDE [Glucotrol] 10 mg PO AC-BID metFORMIN HCL 500 mg PO BID Discharge Medication List Acetaminophen [Tylenol Arthritis] 650 mg PO Q8H PRN 01/07/24 [History] Ascorbic Acid [Vitamin C] 1,000 mg PO DAILY 01/07/24 [History] Aspirin 81 mg PO DAILY 01/07/24 [History] Cholecalciferol [Vitamin D3 (25 Mcg = 1000 Iu)] 25 mcg PO DAILY 01/07/24 [History] Ezetimibe/Simvastatin [Ezetimibe/Simvastatin 10-20 mg] 1 each PO DAILY 01/07/24 [History] Fenofibrate 160 mg PO DAILY 01/07/24 [History] Losartan-Hctz 50-12.5 mg [Hyzaar 50-12.5] 1 tab PO DAILY 01/07/24 [History] Meloxicam [Mobic] 15 mg PO DAILY 01/07/24 [History] Multivitamins, Thera [Multivitamin (formulary)] 1 tab PO DAILY 01/07/24 [History] Tamsulosin HCl [Flomax] 0.4 mg PO HS 01/07/24 [History] glipiZIDE [Glucotrol] 10 mg PO AC-BID 01/07/24 [History] metFORMIN HCL 500 mg PO BID 01/07/24 [History] traMADol HCl [Ultram] 50 mg PO Q6HR PRN 01/07/24 [History] Cyclobenzaprine [Flexeril] 10 mg PO TID PRN #60 tab 01/14/24 [Rx] HYDROcodone/APAP 7.5-325MG [[place] 7.5-325] 1 each PO Q4HR PRN #42 tab 01/14/24 [Rx] Sennosides-Docusate Sodium [Senokot-S] 1 tab PO BID PRN #60 tablet 01/14/24 [Rx] Follow up Appointment(s)/Referral(s): Magdi Ham, GEO [PHYSICIAN SLITTER HELPER] - 2 Weeks (Patient may follow-up with Magdi Ham PA-C or Dr. De Moran at [facility] in 2-3 weeks following discharge. ) Activity/Diet/Wound Care/Special Instructions: 1. Patient may shower with Optifoam dressing intact. 2. Patient may remove Optifoam dressing in 2 days and shower without a dressing at that time. 3. Patient should refrain from driving until at least after their first follow- up appointment in the office. 4. Patient should avoid excessive bending, twisting, lifting; avoid overhead lifting; no lifting greater than 10 pounds 5. Take medications as prescribed 6. Patient may utilize walker to aid in ambulation as needed 7. Patient should avoid anti-inflammatory medications over the next 6 weeks postoperatively 8. Do not soak in tub Discharge Disposition: HOME SELF-CARE
[2024-01-14] MEDS: HYDROcodone/APAP 5-325MG 1 EACH TAB PO STA (11:32)
--- NOTE | 2024-01-14 13:21 | P.PN ---
Subjective Progress Note Date: 01/14/24 Hospital course: Patient is a very pleasant 63-year-old male with [id number] diabetes mellitus type 2, hypertension, and dyslipidemia who presented to the hospital for elective L4-S1 decompression and fusion due to spinal stenosis. He tolerated the procedure well without any postoperative complications. Physical exam: Patient seen and fully evaluated at bedside this morning. Patient was sitting up in chair at bedside, he is dressed and ready to go this morning. Patient reports very eager to get home as he has a 2-hour drive. He currently reports pain is managed but was concerned over drive home. Order will be placed for a 1 time additional dose of [place] to be administered at time of discharge. Patient reports urinating without any difficulties and has been ambulating with PT. Vital signs reviewed and stable. General: Nontoxic, no distress and appears stated age. Derm: Skin warm and dry, normal coloration for ethnicity. Head: Atraumatic, normocephalic and symmetric. Eyes: EOMs intact, no lid lag, and anicteric sclera Mouth: no lip lesions, mucus membranes moist Cardiovascular: Tachycardic rate and regular rhythm with normal S1S2, no murmur, positive posterior tibial pulses bilaterally, and cap refill < 2 seconds. Lungs: Respirations even, regular, and unlabored on room air. Lungs CTA bilaterally, no rhonchi, no rales, no wheezing, and no accessory muscle usage. Abdominal: soft, nontender to palpation, no guarding, no appreciable organomegaly. Das catheter in place. Ext: ROM intact. No gross muscle atrophy, no edema, no contractures Neuro: Speech clear, face symmetrical and CN II-XII grossly intact with no noted focal neuro deficits Psych: Alert and oriented to person, place, time, and situation. Appropriate and pleasant affect. Assessment and Plan of Care: 63-year-old male status post L4-S1 decompression and fusion -Management by primary admitting orthospine surgery team including DVT prophylaxis, pain management, wound/dressing management, and PT/OT. Diabetes mellitus type 2 with hyperglycemia -Continue to hold metformin and glipizide and maintain glycemic protocol with NovoLog sliding scale. -Consistent carb diet -Hemoglobin A1c 7.9%. -As blood sugar improves anticipate resuming metformin and Glucophage Postoperative sinus tachycardia, believed to be secondary to pain -Patient with postoperative tachycardia. -Patient remains asymptomatic of chest pain or any other cardiac complaints. -EKG reviewed showing sinus tachycardia at 117 bpm with no noted T wave or ST abnormalities showing no signs of acute ischemia upon personal review and interpretation. Postoperative thrombocytopenia -Preoperative platelet count was 155 and postoperative platelet count is 137. Stable, no need for intervention or further orders at this time. Hypertension Dyslipidemia -Continue daily medication regimen with losartan/hydrochlorothiazide 50-12.51 mg tablet daily, Fenofibrate 160 mg daily, and Lipitor 10 mg daily Class II obesity with BMI of 34.4 kg/m Data Reviewed: -Vital signs reviewed. Blood pressure 128/78, heart rate 106, respiratory rate 18, temp 98.0 F, and SpO2 of 96% on room air. -EKG reviewed showing sinus tachycardia at 117 bpm with no noted T wave or ST abnormalities showing no signs of acute ischemia upon personal review and interpretation. -Postoperative Labs reviewed. CBC showing preop hemoglobin 15.7 and postoperative hemoglobin of 13.8, Preoperative platelet count of 155 and posto perative platelet count of 137. BMP showing slightly elevated anion gap of 12.6 otherwise normal findings. Blood glucose was elevated again this morning at 209. Hemoglobin A1c 7.9%. From a medical perspective patient cleared for discharge at this time once cleared by primary admitting orthopedic surgery team.. Discussed with patient on the importance of monitoring blood glucose levels closely and following a heart healthy carb consistent diet. Patient was instructed on checking blood glucose levels twice daily for the next 2 weeks and documenting these findings and a daily log/journal to bring with him to his next PCPs appointment. Thank you for allowing us to participate in the care of this pleasant patient. Do not hesitate to contact us with questions. Someone can be reached from the [facility] hospitalist group all hours of the day at [phone] or via perfect serve. Patient was seen independently by Nurse Pracitioner. This document was prepared using My e[employer] dictation software. Please allow for errors in brew house supervisor, while rare they do occur. I reviewed the documentation as provided by the LEX above, who is the original author of this note. I agree with the documented assessment and plan, with the following changes: none Objective - Vital Signs Vital signs: Vital Signs Temp 98.0 F 01/14/24 06:54 Pulse 106 H 01/14/24 06:54 Resp 18 01/14/24 06:54 BP 128/78 01/14/24 06:54 Pulse Ox 96 01/14/24 06:54 FiO2 Intake & Output 01/13/24 01/14/24 01/14/24 18:59 06:59 18:59 Output Total 4300 1005 Balance -4300 -1005 Output: Urine 4300 1005 Uretheral (Das) 525 Other: Voiding Method Indwelling Catheter Urinal - Labs CBC & Chem 7: 01/13/24 07:30 01/13/24 07:30 Labs: Abnormal Lab Results - Last 24 Hours (Table) 01/13/24 01/13/24 01/13/24 Range/Units 07:30 07:30 07:30 WBC 10.89 H (4.50-10.00) X 10*3/uL Plt Count 137 L (140-440) X 10*3/uL Neutrophils # 8.13 H (1.80-7.70) X 10*3/uL Monocytes # 1.35 H (0.20-1.00) X 10*3/uL Anion Gap 12.60 H (4.00-12.00) mmol/L Glucose 209 H (70-110) mg/dL POC Glucose (mg/dL) (70-110) mg/dL Hemoglobin A1c 7.9 H (<=6.0) % 01/13/24 01/13/24 01/13/24 Range/Units 11:35 16:56 20:35 WBC (4.50-10.00) X 10*3/uL Plt Count (140-440) X 10*3/uL Neutrophils # (1.80-7.70) X 10*3/uL Monocytes # (0.20-1.00) X 10*3/uL Anion Gap (4.00-12.00) mmol/L Glucose (70-110) mg/dL POC Glucose (mg/dL) 256 H 207 H 195 H (70-110) mg/dL Hemoglobin A1c (<=6.0) % 01/14/24 Range/Units 05:45 WBC (4.50-10.00) X 10*3/uL Plt Count (140-440) X 10*3/uL Neutrophils # (1.80-7.70) X 10*3/uL Monocytes # (0.20-1.00) X 10*3/uL Anion Gap (4.00-12.00) mmol/L Glucose (70-110) mg/dL POC Glucose (mg/dL) 192 H (70-110) mg/dL Hemoglobin A1c (<=6.0) %
== END 2024-01-14 12:01 | disposition home or self-care (01) ==
LOC: OR 05:41 → 4SSUR 11:44 → OR 01-13 07:36
PROVIDERS: ADMIT Orthopaedic Surgery Orthopaedic Surgery of the Spine; ATTEND Orthopaedic Surgery Orthopaedic Surgery of the Spine
DX: M51.16 Intervertebral disc disorders with radiculopathy, lumbar region (principal); M51.17 Intervertebral disc disorders with radiculopathy, lumbosacral region; M47.26 Other spondylosis with radiculopathy, lumbar region; M47.27 Other spondylosis with radiculopathy, lumbosacral region; M48.062 Spinal stenosis, lumbar region with neurogenic claudication; M48.07 Spinal stenosis, lumbosacral region; I97.191 Other postprocedural cardiac functional disturbances following other surgery; R00.0 Tachycardia, unspecified; D69.6 Thrombocytopenia, unspecified; I10 Essential (primary) hypertension; E78.5 Hyperlipidemia, unspecified; E11.65 Type 2 diabetes mellitus with hyperglycemia; E66.9 Obesity, unspecified; Z68.34 Body mass index [BMI] 34.0-34.9, adult; Z79.1 Long term (current) use of non-steroidal anti-inflammatories (NSAID); Z79.4 Long term (current) use of insulin; Z79.82 Long term (current) use of aspirin; Z79.84 Long term (current) use of oral hypoglycemic drugs; Z79.899 Other long term (current) drug therapy
CPT/HCPCS: 96376 ×3; 96361 ×2; 96365; 96366; 96375; 93005; 97161; 86891; 80048; 85025; 83036; 72100; 63030; 63035 ×2; 22859 ×2; G0378 ×2; C1713 ×2; C1762; J0690 ×2; J2405; J1170 ×4; J0665

== ENCOUNTER → 2024-10-11 | Outpatient (CLI) | payer OTHER ==
[2024-10-11 09:10] LABS: INR 0.9 (<1.2); Prothrombin Time 10.5 sec (10.0-12.5)
[2024-10-11 09:11] LABS: Partial Thromboplastin Time 21.3 sec (22.0-30.0)
[2024-10-11 15:09] LABS: HCT 46.3 % (39.6-50.0); HGB 15.2 g/dL (13.0-17.0); MCH 28.4 pg (27.0-32.0); MCHC 32.8 g/dL (32.0-37.0); MCV 86.5 FL (80.0-97.0); Mean Platelet Volume 11.7 FL (9.5-12.2); NRBC Per 100 WBC 0 X 10*3/uL (0.00-0.01); Platelet Count 171 X 10*3/uL (140-440); RBC 5.35 X 10*6/uL (4.40-5.60); RDW 13.2 % (11.5-14.5); WBC 7.16 X 10*3/uL (4.50-10.00)
[2024-10-11 15:32] LABS: ALT 30 U/L (10-49); AST 23 U/L (14-35); Albumin 4.8 g/dL (3.8-4.9); Albumin/Globulin Ratio 2.29 Ratio (1.60-3.17); Alkaline Phosphatase 68 U/L (41-126); BUN/Creat Ratio 32.38 Ratio (12.00-20.00); Blood Urea Nitrogen 25.9 mg/dL (9.0-27.0); Carbon Dioxide 19.7 mmol/L (21.6-31.8); Chloride 108 mmol/L (96-109); Chol/HDL Ratio 3.44 Ratio; Globulin 2.1 g/dL (1.6-3.3); Glucose 210 mg/dL (70-110); LDL Cholesterol,Calculated 62.5 mg/dL (0.0-131.0); Potassium 4.7 mmol/L (3.5-5.5); Sodium 140 mmol/L (135-145); Total Bilirubin 0.3 mg/dL (0.3-1.2); Total Protein 6.9 g/dL (6.2-8.2)
[2024-10-11 20:27] LABS: Microalbumin Creatinine Ratio <17 mg/g Cr (0-30); Urine Creatinine 72.2 mg/dL (39.0-259.0)
== END | disposition home or self-care (01) ==
LOC: LABWHC1 08:15
PROVIDERS: ATTEND Family Medicine
DX: E11.9 Type 2 diabetes mellitus without complications (principal)
CPT/HCPCS: 36415; 80053; 80061; 82043; 82570; 83036; 85027; 85610; 85730; 86850; 86900; 86901; 87070; 93005

== ENCOUNTER → 2024-10-11 | Outpatient (CLI) | payer OTHER | END | disposition home or self-care (01) | LOC: LABPAT 08:12 | PROVIDERS: ATTEND Orthopaedic Surgery | DX: Z53.9 Procedure and treatment not carried out, unspecified reason (principal) ==

== ENCOUNTER 2024-10-17 08:51 | Day surgery (SDC) | payer OTHER ==
[~2024-10-17 08:51] MED LIST: TRANEXAMIC 1,000 MG/100ML-NACL 1,000 MG in SALINE 1 100ML.BAG IVPB PRN
[2024-10-17] MEDS ORDERED: HYDROmorphone 0.5 MG/0.5 ML SYRINGE IVP PRN (09:53)
[2024-10-17] MEDS ORDERED: LACTATED RINGERS 1,000 ML IV SCH (09:53)
[2024-10-17] MEDS: IV FLUID CONTINUATION 1,000 ML IV ONE (10:01)
[2024-10-17 10:15] VITALS: RESP 16; TEMP 97.2
[2024-10-17 10:23] LABS: Glucose,Whole Blood 193 mg/dL (70-110)
[2024-10-17] MEDS: ACETAMINOPHEN TAB 500 MG TAB PO PRN (10:33)
[2024-10-17] MEDS: MELOXICAM 7.5 MG TAB PO PRN (10:33)
[2024-10-17] MEDS: GABAPENTIN 300 MG CAP PO PRN (10:33)
[2024-10-17] MEDS: ONDANSETRON 4 MG/2 ML VIAL IVP ONE (10:34)
[2024-10-17] MEDS: DEXAMETHASONE SOD PHOSPHATE 4 MG/ML 1 ML VIAL IV ONE (10:34)
[2024-10-17] MEDS: MIDAZOLAM 2 MG/2 ML VIAL IVP ONE (10:57)
[2024-10-17 11:09] VITALS: BP 132/68; PULSE 91
--- NOTE | 2024-10-18 13:23 | P.ANPRN ---
Procedure Note - Anesthesia - Nerve Block Performed Right [place] Single Time Out Performed: Yes Date of Procedure: 10/17/24 Procedure Start Time: 10:56 Procedure Stop Time: 11:01 Location of Patient: PreOp Indication: Acute Post-Operative Pain, Requested by Surgeon Sedation Type: Sedate with meaningful contact maintained Preparation: Sterile Prep Position: Supine Needle Types: Pajunk Needle Gauge: 21 Ultrasound used to visualize needle placement: Yes Ultrasound used to observe medication spread: Yes Blood Aspirated: No Pain Paresthesia on Injection Noted: No Resistance on Injection: Normal Image Stored and Saved: Yes Events: Uneventful and Well Tolerated (Ropivacaine 0.5% 20 cc plus dexamethasone 4 mg)
== END 2024-10-17 13:30 | disposition home or self-care (01) ==
LOC: OR 08:51
PROVIDERS: ATTEND Orthopaedic Surgery
DX: M16.11 Unilateral primary osteoarthritis, right hip (principal); Z53.9 Procedure and treatment not carried out, unspecified reason
CPT/HCPCS: J2250; J1100; J2405

== ENCOUNTER 2024-10-17 13:20 | Day surgery (SDC) | payer OTHER ==
[2024-10-17] MEDS: IV FLUID CONTINUATION 1,000 ML IV ONE (13:44)
[2024-10-17 14:09] LABS: Glucose,Whole Blood 208 mg/dL (70-110)
--- NOTE | 2024-10-17 14:25 | P.HPIHPCON ---
History of Present Illness H&P Date: 10/17/24 Chief Complaint: Bladder neck contracture This is a 64-year-old male with history of prostate cancer, underwent robotic radical prostatectomy by Dr. Morataya in May 2024. Patient developed urinary retention recently, he underwent attempted catheter placement which was uns uccessful, subsequently required urethral dilation and placement of a catheter over a guidewire at [place]. He underwent a subsequent cystoscopy that showed evidence of quite a dense bladder neck contracture. Patient also had symptomatic hip pain and will require a hip replacement. I discussed with him I do recommend proceeding with addressing the bladder neck contracture prior with proceeding with hip replacement. discussed the risk of infection with prolonged catheter use. At this time he understood that we have to address the bladder neck contracture prior to his hip replacement. He is scheduled for transurethral incision of a bladder neck contracture by Dr. Morataya in November, but patient would like to address the bladder neck contracture sooner given his symptomatic hip pain. Discussed with him the option of incision of a bladder neck contracture, he is aware of the risk which includes but not limited to bleeding, infection, urinary incontinence, risk of recurrence. He understood all the risk and agreed to proceed Consent for Procedure: I have explained the operation/procedure to the patient, including the risks, benefits, side effects, alternative therapies (including not receiving the proposed treatment or service), the likelihood of the patient achieving his/her goals, and potential recuperation problems for the procedure/sedation/analgesia, as well as any blood products, if indicated. I also explained to the patient the risks, benefits and side effects of the alternatives, as well as the risks related to not receiving the proposed procedure, care, treatment, or services. Past Medical History Past Medical History: Cancer, Diabetes Mellitus, Hyperlipidemia, Hypertension, Osteoarthritis (OA), Prostate Disorder Additional Past Medical History / Comment(s): hx. of recent prostate cancer-had surg., since this surg. has had problems w/urinating since urethral opening is now very small, no current catheter, spinal stenosis History of Any Multi-Drug Resistant Organisms: None Reported Past Surgical History: Back Surgery, Cholecystectomy, Hernia Repair, Prostate Surgery Additional Past Surgical History / Comment(s): prostate bx 01-04-24,umbilical hernia repair, back surg. 01/11, prostatectomy 2023 Past Anesthesia/Blood Transfusion Reactions: Previous Problems w/ Anesthesia Additional Past Anesthesia/Blood Transfusion Reaction / Comment(s): no hx blood transfusion, had vitals crash w/prostate surg. @[facility] in May., was told due to positioning during surgery, surg. was aborted, was told to lose a little weight, saw card. who found no problems, surgery 2nd time everything was fine Smoking Status: Never smoker - Past Family History Mother Family Medical History: Cancer Father Family Medical History: Cancer Medications and Allergies Home Medications Medication Instructions Recorded Confirmed Type Acetaminophen [Tylenol Arthritis] 650 mg PO Q8H PRN 01/07/24 10/17/24 History Ascorbic Acid [Vitamin C] 1,000 mg PO DAILY 01/07/24 10/17/24 History Aspirin 81 mg PO DAILY 01/07/24 10/17/24 History Cholecalciferol [Vitamin D3 (25 25 mcg PO DAILY 01/07/24 10/17/24 History Mcg = 1000 Iu)] Ezetimibe/Simvastatin 1 each PO DAILY 01/07/24 10/17/24 History [Ezetimibe/Simvastatin 10-20 mg] Fenofibrate 160 mg PO DAILY 01/07/24 10/17/24 History Losartan-Hctz 50-12.5 mg [Hyzaar 1 tab PO DAILY 01/07/24 10/17/24 History 50-12.5] Meloxicam [Mobic] 15 mg PO DAILY 01/07/24 10/17/24 History Multivitamins, Thera [Multivitamin 1 tab PO DAILY 01/07/24 10/17/24 History (formulary)] glipiZIDE [Glucotrol] 10 mg PO AC-BID 01/07/24 10/17/24 History metFORMIN HCL 500 mg PO BID 01/07/24 10/17/24 History Allergies Allergy/AdvReac Type Severity Reaction Status Date / Time No Known Allergies Allergy Verified 10/17/24 13:52 Surgical - Exam Vital Signs Temp Pulse Resp BP Pulse Ox 98.2 F 85 16 145/56 95 10/17/24 13:32 10/17/24 13:32 10/17/24 13:32 10/17/24 13:32 10/17/24 13:32 - General no distress, no pain - Eyes normal ocular movement, no pale - ENT normal nares, normal mucosa - Respiratory normal expansion, normal respiratory effort - Abdomen Abdomen: soft, non tender Results - Labs Abnormal Lab Results - Last 24 Hours (Table) 10/17/24 Range/Units 14:08 POC Glucose (mg/dL) 208 H (70-110) mg/dL Assessment and Plan Assessment: OR for cystoscopy, transurethral incision of a bladder neck contracture. Surgery will be performed by Dr. Coates
[2024-10-17] MEDS ORDERED: fentaNYL (PF) 50 MCG/ML 2 ML AMP ONE (14:33)
[2024-10-17] MEDS ORDERED: MIDAZOLAM 2 MG/2 ML VIAL ONE (14:33)
[2024-10-17] MEDS ORDERED: PHENYLEPHRINE 10 MG/ML VIAL ONE (14:33)
[2024-10-17] MEDS ORDERED: LIDOCAINE 1% INJ 10MG/ML (20 ML MDV) ONE (14:33)
[2024-10-17] MEDS ORDERED: PROPOFOL 10 MG/ML 20 ML VIAL IV ONE (14:33)
[2024-10-17] MEDS: SODIUM CHLORIDE 0.9% 100 ML with ceFAZolin 2,000 MG IV ONE (14:36)
--- NOTE | 2024-10-17 15:11 | P.OP ---
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 He was to have a hip arthroplasty by Dr. Adkins today however historically he was having problems urinating. As it turns out he had a robotic assisted radical prostatectomy several months ago by Dr Morataya. He developed a vesicle neck contracture. It had been dilated once only to have the symptoms of obstruction return. It was recommended that he have a vesicle neck incision however the patient wanted his hip arthroplasty done as soon as possible due to pain. He came today for this procedure and when identified the urologic issues he canceled the hip arthroplasty and consulted us. We discussed with the patient and explained to him that he wanted to have this urologic problem dealt with before hip arthroplasty so that he did not develop an infection of his artificial hip. We recommended incision of the vesicle neck contracture his previous dilation did not work. He comes for this procedure. He understands increased risk of incontinence developing. Description of Procedure: Patient brought to the operating suite. He was given a general anesthetic. He is placed in lithotomy position with a sterile prep and drape. Patient brought to the operating suite. He is given a general anesthetic. He is placed in lithotomy position with a sterile prep and drape. I first have to do a urethral meatoplasty with the [place] urethrotome as I cannot fit the cystoscope into the urethra. After I do the meatotomy I passed the scope into the bulbar urethra. I looked through the external sphincter and see a very tight vesicle neck contracture probably 4-5 [place]. I thus introduced the direct vision urethrotome and I cut with the straight knife at 12:00 but I am still unable to advance the scope into the bladder. I then make a cut at 6:00 and I am able to eventually pass the scope into the bladder. I remove the scope and passed a 16 Armenian coud tip cath into the bladder with clear urine return. There is no notable bleeding. The patient is awakened returned recovery in good condition. He will be discharged home on recovery and follow in the office in 3 days for catheter removal.
[2024-10-17] MEDS ORDERED: ACETAMINOPHEN TAB 325 MG TAB PO PRN (18:54)
[2024-10-17] MEDS ORDERED: DEXTROSE 50% SYRINGE 50 ML IVP PRN ×2 (19:01)
[2024-10-17 20:45] LABS: Glucose,Whole Blood 371 mg/dL (70-110)
[2024-10-17] MEDS: metFORMIN 500 MG TAB PO SCH (21:14)
[2024-10-17] MEDS: INSULIN ASPART (NovoLOG) 100 UNIT/ML VIAL SQ SCH (21:15)
[2024-10-18 02:41] VITALS: RESP 17
[2024-10-18 06:17] LABS: Glucose,Whole Blood 210 mg/dL (70-110)
[2024-10-18] MEDS: glipiZIDE 10 MG TAB PO SCH (06:41)
[2024-10-18 07:35] VITALS: BP 118/72; PULSE 85; TEMP 97.7
[2024-10-18] MEDS: ATORVASTATIN 10 MG TAB PO SCH (08:28)
[2024-10-18] MEDS: FENOFIBRATE 160 MG TAB PO SCH (08:28)
[2024-10-18] MEDS: CHOLECALCIFEROL 25 MCG (1000 IU) TABLET PO SCH (08:28)
[2024-10-18] MEDS: LOSARTAN 50 MG TAB PO SCH (08:28)
[2024-10-18] MEDS: ASPIRIN 81 MG PO SCH (08:28)
[2024-10-18] MEDS: MELOXICAM 7.5 MG TAB PO SCH (08:28)
[2024-10-18] MEDS: EZETIMIBE 10 MG TAB PO SCH (08:28)
[2024-10-18] MEDS: ASCORBIC ACID 500 MG TAB PO SCH (08:28)
[2024-10-18] MEDS: MULTIVITAMINS, THERA 1 EACH TAB PO SCH (08:28)
--- NOTE | 2024-10-18 10:49 | P.PN ---
Subjective Progress Note Date: 10/18/24 First postoperative day from an aborted right hip arthroplasty and a subsequent cystoscopy and incision of vesicle neck contracture. The patient was kept in the hospital overnight due to numbness of his right leg as a result of his nerve block prior to his hip arthroplasty which was canceled. He has done well he is feeling well. His urine has cleared. His weakness and numbness are gone. Objective - Vital Signs Vital signs: Vital Signs Temp 97.7 F 10/18/24 06:50 Pulse 85 10/18/24 06:50 Resp 17 10/18/24 06:50 BP 118/72 10/18/24 06:50 Pulse Ox 98 10/18/24 06:50 FiO2 Intake & Output 10/17/24 10/18/24 10/18/24 18:59 06:59 18:59 Intake Total 1000 Output Total 5 1800 Balance 995 -1800 Weight 95.254 kg Intake: IV 1000 Output: Urine 1800 Coude 1800 Estimated Blood Loss 5 Other: Voiding Method Indwelling Catheter Indwelling Catheter - Labs Labs: Abnormal Lab Results - Last 24 Hours (Table) 10/17/24 10/17/24 10/18/24 Range/Units 14:08 20:43 03:31 POC Glucose (mg/dL) 208 H 371 H (70-110) mg/dL Hemoglobin A1c 7.3 H (<=6.0) % 10/18/24 Range/Units 06:16 POC Glucose (mg/dL) 210 H (70-110) mg/dL Hemoglobin A1c (<=6.0) % Assessment and Plan Assessment: Impression: Successful incision a vesicle neck contracture Recommendations: Catheter should remain in place until Wednesday. He can come to the office here in [place] and have it removed or he can it removed by his primary care or urologist in [place] on Wednesday. We have discussed the postoperative care and urinary status after this procedure.
[2024-10-18 11:12] LABS: Glucose,Whole Blood 161 mg/dL (70-110)
--- NOTE | 2024-10-18 11:32 | P.HPIM ---
History of Present Illness H&P Date: 10/18/24 Chief Complaint: Bladder neck obstruction Patient is a 64-year-old male with history of prostate cancer, underwent robotic radical prostatectomy by Dr. Morataya in May 2024. Patient recently developed urinary retention and underwent a cystoscopy that showed evidence of a bladder neck contracture. Patient underwent a cystoscopy and transurethral incision of a bladder neck contracture yesterday afternoon by Dr. Coates. No estimated blood loss. Per surgery note, patient will follow-up in office for 3 days for catheter removal. Patient is being admitted to internal medicine service for medical management. Patient was seen at bedside. He currently reports no urina ry symptoms. No dysuria, foul smell, cloudy urine. Patient has been cleared from urology and catheter should remain in place until Wednesday. No other concerns at this time. No fever, chills, chest pain, shortness of breath, nausea or vomiting. Vitals on admission temperature 97.7, pulse rate 85, respiratory 17, blood pressure 118/72, O2 sat 98% on room air Review of systems: Pertinent positives and negatives as discussed in HPI, a complete review of systems was performed and all other systems are negative. PMH: Prostate cancer underwent robotic radical prostatectomy in May 2024 PSH: Back surgery, cholecystectomy, hernia repair, prostate surgery Allergies: No known drug allergies Physical examination: Vital signs reviewed General: nontoxic, no distress, appears at stated age Derm: warm, dry, intact Head: atraumatic, normocephalic, symmetric Eyes: EOMI, anicteric sclera Mouth: no lip lesion, mucus membranes moist Cardiovascular: S1 S2 reg, no murmur Lungs: CTA bilateral, no rhonchi, no rales, no accessory muscle use Abdominal: soft, non-tender to palpation Extremities: No cyanosis, clubbing, or pedal edema. Neuro: Alert, Oriented, Gross neurological examination did not reveal any focal deficits. Psych: well appearing, appropriate affect Assessment/Plan: Patient is a 64-year-old male with history of prostate cancer, underwent robotic radical prostatectomy by Dr. Morataya in May 2024. Patient recently developed urinary retention and underwent a cystoscopy that showed evidence of a bladder neck contracture. Patient will be admitted to internal medicine service. Active: #. Status post cystoscopy and transurethral incision of bladder neck contracture 10/17/2024 Catheter to remain in place until Wednesday Patient to follow-up with Dr. Coates to have the catheter removed or can be removed by his primary care or urologist in [place] on Wednesday The patient is admitted with an anticipated less than 2 midnight stay for evaluation of urinary retention Discussed with: Family Anticipated discharge place: Home Past Medical History Past Medical History: Cancer, Diabetes Mellitus, Hyperlipidemia, Hypertension, Osteoarthritis (OA), Prostate Disorder Additional Past Medical History / Comment(s): hx. of recent prostate cancer-had surg., since this surg. has had problems w/urinating since urethral opening is now very small, no current catheter, spinal stenosis History of Any Multi-Drug Resistant Organisms: None Reported Past Surgical History: Back Surgery, Cholecystectomy, Hernia Repair, Prostate Surgery Additional Past Surgical History / Comment(s): prostate bx 01-04-24,umbilical hernia repair, back surg. 01/11, prostatectomy 2023 Past Anesthesia/Blood Transfusion Reactions: Previous Problems w/ Anesthesia Additional Past Anesthesia/Blood Transfusion Reaction / Comment(s): no hx blood transfusion, had vitals crash w/prostate surg. @[facility] in , was told due to positioning during surgery, surg. was aborted, was told to lose a little weight, saw card. who found no problems, surgery 2nd time everything was fine Past Psychological History: No Psychological Hx Reported Smoking Status: Never smoker Past Alcohol Use History: Occasional Additional Past Alcohol Use History / Comment(s): occas cigar Past Drug Use History: None Reported - Past Family History Mother Family Medical History: Cancer Father Family Medical History: Cancer Medications and Allergies Home Medications Medication Instructions Recorded Confirmed Type Acetaminophen [Tylenol Arthritis] 650 mg PO Q8H PRN 01/07/24 10/17/24 History Ascorbic Acid [Vitamin C] 1,000 mg PO DAILY 01/07/24 10/17/24 History Aspirin 81 mg PO DAILY 01/07/24 10/17/24 History Cholecalciferol [Vitamin D3 (25 25 mcg PO DAILY 01/07/24 10/17/24 History Mcg = 1000 Iu)] Ezetimibe/Simvastatin 1 each PO DAILY 01/07/24 10/17/24 History [Ezetimibe/Simvastatin 10-20 mg] Fenofibrate 160 mg PO DAILY 01/07/24 10/17/24 History Losartan-Hctz 50-12.5 mg [Hyzaar 1 tab PO DAILY 01/07/24 10/17/24 History 50-12.5] Meloxicam [Mobic] 15 mg PO DAILY 01/07/24 10/17/24 History Multivitamins, Thera [Multivitamin 1 tab PO DAILY 01/07/24 10/17/24 History (formulary)] glipiZIDE [Glucotrol] 10 mg PO AC-BID 01/07/24 10/17/24 History metFORMIN HCL 500 mg PO BID 01/07/24 10/17/24 History Allergies Allergy/AdvReac Type Severity Reaction Status Date / Time No Known Allergies Allergy Verified 10/17/24 13:52 Physical Exam Vitals: Vital Signs Temp Pulse Pulse Resp BP Pulse Ox 10/18/24 06:50 97.7 F 85 17 118/72 98 10/18/24 01:28 97.6 F 93 17 129/76 97 10/17/24 19:07 98.1 F 105 H 18 125/80 96 10/17/24 16:12 89 18 126/82 96 10/17/24 15:54 97 16 130/81 96 10/17/24 15:44 92 16 121/64 93 L 10/17/24 15:29 96 16 135/76 94 L 10/17/24 15:14 97.4 F L 101 H 12 142/83 95 10/17/24 13:32 98.2 F 85 16 145/56 95 Intake and Output 10/17/24 10/18/24 10/18/24 22:59 06:59 14:59 Intake Total 100 Output Total 805 1000 Balance -705 -1000 Intake: IV 100 Output: Urine 800 1000 Coude 800 1000 Estimated Blood Loss 5 Other: Voiding Method Indwelling Catheter Indwelling Catheter Weight 95.254 kg Results Labs: Abnormal Lab Results - Last 24 Hours (Table) 10/17/24 10/17/24 10/18/24 Range/Units 14:08 20:43 03:31 POC Glucose (mg/dL) 208 H 371 H (70-110) mg/dL Hemoglobin A1c 7.3 H (<=6.0) % 10/18/24 Range/Units 06:16 POC Glucose (mg/dL) 210 H (70-110) mg/dL Hemoglobin A1c (<=6.0) % Thrombosis Risk Factor Assmnt - Choose All That Apply Each Factor Represents 1 point: Obesity (BMI >25) Each Risk Factor Represents 2 Points: Age 61-74 years, Malignancy Thrombosis Risk Factor Assessment Total Risk Factor Score: 5 Thrombosis Risk Factor Assessment Level: High Risk
--- NOTE | 2024-10-18 11:36 | P.DS ---
Providers Expected date of discharge: 10/18/24 Attending physician: Amy Pabon Consults: 10/17/24 17:00 Consult Physician Routine Consulting Provider: Iglesia Coates Consult Reason/Comments: REQUESTING UROLOGIC CONSULT DUE TO RECENT SURGERY. Do you want consulting provider notified?: Already Contacted Primary care physician: Rio Fitzpatrick MD Hospital Course: Hospital course: Patient is a 64-year-old male with history of prostate cancer, underwent robotic radical prostatectomy by Dr. Morataya in May 2024. Patient recently developed urinary retention and underwent a cystoscopy that showed evidence of a bladder neck contracture. Patient underwent a cystoscopy and transurethral incision of a bladder neck contracture yesterday afternoon by Dr. Coates. No estimated blood loss. Per surgery note, patient will follow-up in office for 3 days for catheter removal. Patient is being admitted to internal medicine service for medical management. Patient was seen at bedside. He currently reports no urinary symptoms. No dysuria, foul smell, cloudy urine. Patient has been cleared from urology and catheter should remain in place until Wednesday. No other concerns at this time. No fever, chills, chest pain, shortness of breath, nausea or vomiting. Vitals on admission temperature 97.7, pulse rate 85, respiratory 17, blood pressure 118/72, O2 sat 98% on room air. Patient was seen on 10/18/2027. He is medically stable to be discharged back home. His catheter will remain in place until Wednesday. He can follow-up with Dr. Coates to have the catheter removed or can be removed by his primary care or urologist in [place] on Wednesday. No changes were made to patient's home medications. Physical examination at discharge: GENERAL: This is a 64-year-old in no apparent distress at the time of examination. Pleasant and cooperative. HEENT: Head is atraumatic, normocephalic. Pupils are equal, round, and reactive to light. Sclerae anicteric. Conjunctivae are clear. Mucus membranes of the mouth are moist. Neck is supple. RESPIRATORY: Clear to auscultation. No wheezes, rales, or rhonchi. No use of accessory muscles. Patient maintaining oxygen saturation greater than 92%. No chest wall tenderness is noted on palpation or with deep breathing. CARDIOVASCULAR: Regular rate and rhythm. S1 and S2 noted. No systolic or diastolic murmur auscultated. No JVD noted. No S3 or S4 noted. GASTROINTESTINAL: No distention noted. Abdomen soft and round. Normal active bowel sounds auscultated x 4 quadrants. No pain or tenderness noted upon palpation. INTEGUMENTARY: No cyanosis. No jaundice. No rashes noted. No cellulitis noted. EXTREMITIES: 2+ peripheral pulses. No evidence of peripheral edema. No calf tenderness noted. NEUROLOGIC: Cranial nerves II-XII intact. PSYCHIATRIC: Awake, alert, and oriented X 3. Appropriate affect. Intact judgement and insight. Plan - Discharge Summary Discharge Rx Participant: No New Discharge Prescriptions: Continue Cholecalciferol [Vitamin D3 (25 Mcg = 1000 Iu)] 25 mcg PO DAILY Multivitamins, Thera [Multivitamin (formulary)] 1 tab PO DAILY Losartan-Hctz 50-12.5 mg [Hyzaar 50-12.5] 1 tab PO DAILY Fenofibrate 160 mg PO DAILY Ezetimibe/Simvastatin [Ezetimibe/Simvastatin 10-20 mg] 1 each PO DAILY Aspirin 81 mg PO DAILY Ascorbic Acid [Vitamin C] 1,000 mg PO DAILY Acetaminophen [Tylenol Arthritis] 650 mg PO Q8H PRN PRN Reason: Pain Meloxicam [Mobic] 15 mg PO DAILY glipiZIDE [Glucotrol] 10 mg PO AC-BID metFORMIN HCL 500 mg PO BID Discharge Medication List Acetaminophen [Tylenol Arthritis] 650 mg PO Q8H PRN 01/07/24 [History] Ascorbic Acid [Vitamin C] 1,000 mg PO DAILY 01/07/24 [History] Aspirin 81 mg PO DAILY 01/07/24 [History] Cholecalciferol [Vitamin D3 (25 Mcg = 1000 Iu)] 25 mcg PO DAILY 01/07/24 [History] Ezetimibe/Simvastatin [Ezetimibe/Simvastatin 10-20 mg] 1 each PO DAILY 01/07/24 [History] Fenofibrate 160 mg PO DAILY 01/07/24 [History] Losartan-Hctz 50-12.5 mg [Hyzaar 50-12.5] 1 tab PO DAILY 01/07/24 [History] Meloxicam [Mobic] 15 mg PO DAILY 01/07/24 [History] Multivitamins, Thera [Multivitamin (formulary)] 1 tab PO DAILY 01/07/24 [History] glipiZIDE [Glucotrol] 10 mg PO AC-BID 01/07/24 [History] metFORMIN HCL 500 mg PO BID 01/07/24 [History] Follow up Appointment(s)/Referral(s): Iglesia Coates MD [STAFF PHYSICIAN] - 10/20/24 (home with mcgrath, Follow-up with Urology on wednesday to remove Mcgrath. Office stated they will call patient with time of appointment.) Patient Instructions/Handouts: *Surgery [facility] - Mcgrath Catheter Instructions, *Surgery [facility] - (Anesthesia) Discharge Instructions Outpatient Surgery, Mcgrath Catheter Placement and Care (ED), Mcgrath Catheter Placement and Care (DC), Peripheral Nerve Block (DC), Cystoscopy (DC), How to Change a Catheter Drainage Bag (DC) Discharge Disposition: HOME SELF-CARE
== END 2024-10-18 11:42 | disposition home or self-care (01) ==
LOC: OR 13:20 → 4SSUR 15:05 → OR 10-18 11:42
PROVIDERS: ATTEND Hospitalist
DX: N32.0 Bladder-neck obstruction (principal); E11.9 Type 2 diabetes mellitus without complications; E78.5 Hyperlipidemia, unspecified; I10 Essential (primary) hypertension; Z85.46 Personal history of malignant neoplasm of prostate
CPT/HCPCS: 52276; 83036; J2250; J0690; J2003; J3010; J2704; J2371

== ENCOUNTER 2024-11-28 07:40 | Day surgery (SDC) | payer OTHER ==
--- NOTE | 2024-11-28 07:37 | P.HPIHPCON ---
History of Present Illness H&P Date: 11/28/24 Chief Complaint: Bladder neck contracture This is a 65-year-old male with history of bladder neck contracture following robotic radical prostatectomy that was done by Dr. Morataya at [facility]. He underwent incision of a bladder neck contracture on October 17. He noticed significant improvement of his voiding symptoms but more recently continues to have difficulty voiding, at this point he is only able to dribble small amount of urine, with an elevated residual. Of note he underwent hip replacement on November 07. Discussed with him given his difficulty voiding and elevated residual we will proceed with a cystoscopy and dilation of a bladder neck contracture versus incision. Risk of bleeding, infection, urinary incontinence, recurrent strictures was also discussed. He understood all the risk and agreed to proceed Consent for Procedure: I have explained the operation/procedure to the patient, including the risks, benefits, side effects, alternative therapies (including not receiving the proposed treatment or service), the likelihood of the patient achieving his/her goals, and potential recuperation problems for the procedure/sedation/analgesia, as well as any blood products, if indicated. I also explained to the patient the risks, benefits and side effects of the alternatives, as well as the risks related to not receiving the proposed procedure, care, treatment, or services. Past Medical History Past Medical History: Cancer, Diabetes Mellitus, Hyperlipidemia, Hypertension, Osteoarthritis (OA), Prostate Disorder Additional Past Medical History / Comment(s): hx. of recent prostate cancer-had surg., since this surg. has had problems w/urinating since urethral opening is now very small, no current catheter, spinal stenosis History of Any Multi-Drug Resistant Organisms: None Reported Past Surgical History: Back Surgery, Cholecystectomy, Hernia Repair, Prostate Surgery Additional Past Surgical History / Comment(s): prostate bx 01-04-24,umbilical hernia repair, back surg. 01/11, prostatectomy 2023 uretheral dilation Past Anesthesia/Blood Transfusion Reactions: Previous Problems w/ Anesthesia Additional Past Anesthesia/Blood Transfusion Reaction / Comment(s): no hx blood transfusion, had vitals crash w/prostate surg. @[facility] in May., was told due to positioning during surgery, surg. was aborted, was told to lose a little weight, saw card. who found no problems, surgery 2nd time everything was fine Smoking Status: Never smoker - Past Family History Mother Family Medical History: Cancer Father Family Medical History: Cancer Medications and Allergies Home Medications Medication Instructions Recorded Confirmed Type Acetaminophen [Tylenol Arthritis] 650 mg PO Q8H PRN 01/07/24 11/23/24 History Ascorbic Acid [Vitamin C] 1,000 mg PO DAILY 01/07/24 11/23/24 History Aspirin 81 mg PO DAILY 01/07/24 11/23/24 History Cholecalciferol [Vitamin D3 (25 25 mcg PO DAILY 01/07/24 11/23/24 History Mcg = 1000 Iu)] Ezetimibe/Simvastatin 1 each PO DAILY 01/07/24 11/23/24 History [Ezetimibe/Simvastatin 10-20 mg] Fenofibrate 160 mg PO DAILY 01/07/24 11/23/24 History Losartan-Hctz 50-12.5 mg [Hyzaar 1 tab PO DAILY 01/07/24 11/23/24 History 50-12.5] Meloxicam [Mobic] 15 mg PO DAILY 01/07/24 11/23/24 History Multivitamins, Thera [Multivitamin 1 tab PO DAILY 01/07/24 11/23/24 History (formulary)] glipiZIDE [Glucotrol] 10 mg PO AC-BID 01/07/24 11/23/24 History metFORMIN HCL 1,000 mg PO BID 01/07/24 11/23/24 History Sennosides [Senokot] 2 tab PO DAILY PRN #60 tablet 11/07/24 11/23/24 Rx Allergies Allergy/AdvReac Type Severity Reaction Status Date / Time No Known Allergies Allergy Verified 11/23/24 14:58 Surgical - Exam - General no distress, no pain - Eyes normal ocular movement, no pale - ENT normal nares, normal mucosa - Abdomen Abdomen: soft, non tender, no distended - Psychiatric oriented to time, oriented to person, oriented to place Assessment and Plan Assessment: OR for cystoscopy and dilation of bladder neck contracture
[~2024-11-28 07:40] MED LIST changes: +HYDROmorphone 0.5 MG/0.5 ML SYRINGE IVP PRN; +LIDOCAINE 1% (10MG/ML) FOR IV START INTRADERMA PRN; -TRANEXAMIC 1,000 MG/100ML-NACL 1,000 MG in SALINE 1 100ML.BAG IVPB PRN; +fentaNYL (PF) 50 MCG/ML 2 ML AMP IVP PRN
[2024-11-28 08:21] VITALS: RESP 18
[2024-11-28] MEDS: LACTATED RINGERS 1,000 ML IV SCH (08:35)
[2024-11-28] MEDS: DEXAMETHASONE SOD PHOSPHATE 4 MG/ML 1 ML VIAL IV ONE (08:36)
[2024-11-28] MEDS: ONDANSETRON 4 MG/2 ML VIAL IVP ONE (08:36)
[2024-11-28] MEDS: MIDAZOLAM 2 MG/2 ML VIAL IV PRN (08:39)
[2024-11-28] MEDS: IV FLUID CONTINUATION 1,000 ML IV ONE (08:42)
[2024-11-28] MEDS ORDERED: LIDOCAINE 1% INJ 10MG/ML (20 ML MDV) ONE (09:12)
[2024-11-28] MEDS ORDERED: fentaNYL (PF) 50 MCG/ML 2 ML AMP ONE (09:12)
[2024-11-28] MEDS ORDERED: PROPOFOL 10 MG/ML 20 ML VIAL IV ONE (09:12)
[2024-11-28] MEDS ORDERED: PHENYLEPHRINE 10 MG/ML VIAL ONE (09:12)
--- NOTE | 2024-11-28 10:08 | P.OP ---
Date of Procedure: 11/28/24 Preoperative Diagnosis: Bladder neck contracture Postoperative Diagnosis: Same Procedure(s) Performed: Cystoscopy, dilation of bladder neck contracture Implants: None Anesthesia: ALICIAA Surgeon: Edinson Villanueva Pathology: none sent Condition: stable Disposition: PACU Indications for Procedure: This is a 65-year-old male with history of bladder neck contracture following robotic radical prostatectomy that was done by Dr. Morataya at [facility]. He underwent incision of a bladder neck contracture on October 17. He noticed significant improvement of his voiding symptoms but more recently continues to have difficulty voiding, at this point he is only able to dribble small amount of urine, with an elevated residual. Of note he underwent hip replacement on November 07. Discussed with him given his difficulty voiding and elevated residual we will proceed with a cystoscopy and dilation of a bladder neck contracture versus incision. Risk of bleeding, infection, urinary incontinence, recurrent strictures was also discussed. He understood all the risk and agreed to procee Operative Findings: Approximately a 4 Kyr[place]z bladder neck contracture Description of Procedure: Patient brought to the operating room, general anesthesia was induced. He was prepped and draped in sterile fashion and placed in the supine position. Next a flexible cystoscope was inserted per urethra, the cystoscope was advanced to the level of the bladder neck, at this point a very narrowed bladder neck was encountered, the size of the bladder neck contracture measured approximately 4 Kyrgyz. At this time I was able to advance a wire through the cystoscope and through the bladder neck contracture and into the bladder. Next the bladder neck contracture was dilated using the S shaped dilators, the S dilators were advanced over the wire starting with 8 K[place]z and going all the way up to 20. At this time the wire was removed and a 18 [place] Das was placed with return of clear urine. Patient tolerated procedure well, he will follow-up in 1 week for cath removal
[2024-11-28] MEDS ORDERED: SENNOSIDES 8.6 MG TAB PO PRN (10:10)
[2024-11-28] MEDS ORDERED: HYDROcodone/APAP 5-325MG 1 EACH TAB PO PRN (10:11)
[2024-11-28] MEDS ORDERED: ONDANSETRON 4 MG/2 ML VIAL IVP PRN (10:13)
[2024-11-28] MEDS ORDERED: SODIUM CHLORIDE 0.9% 1,000 ML IV SCH (10:15)
[2024-11-28 10:42] VITALS: TEMP 98.9
[2024-11-28 10:53] VITALS: BP 123/76; PULSE 91
[2024-11-28] MEDS ORDERED: GLIPIZIDE 10 MG PO SCH (17:30)
[2024-11-28] MEDS ORDERED: HEPARIN SODIUM,PORCINE 5,000 UNIT/ML 1 ML VIAL SQ SCH (21:00)
[2024-11-28] MEDS ORDERED: metFORMIN 500 MG TAB PO SCH (21:00)
[2024-11-29] MEDS ORDERED: [UNRECOGNIZED DRUG - OTHER] PO SCH (09:00)
[2024-11-29] MEDS ORDERED: CHOLECALCIFEROL 25 MCG (1000 IU) TABLET PO SCH (09:00)
[2024-11-29] MEDS ORDERED: LOSARTAN-HCTZ 50-12.5 MG 1 EACH TAB PO SCH (09:00)
[2024-11-29] MEDS ORDERED: FENOFIBRATE 160 MG TAB PO SCH (09:00)
[2024-11-29] MEDS ORDERED: SIMVASTATIN PO SCH (09:00)
[2024-11-29] MEDS ORDERED: EZETIMIBE PO SCH (09:00)
== END 2024-11-28 11:20 | disposition home or self-care (01) ==
LOC: OR 07:40
PROVIDERS: ATTEND Urology
DX: N32.0 Bladder-neck obstruction (principal); I10 Essential (primary) hypertension; E78.5 Hyperlipidemia, unspecified; E11.9 Type 2 diabetes mellitus without complications; M19.90 Unspecified osteoarthritis, unspecified site; Z85.46 Personal history of malignant neoplasm of prostate; Z90.49 Acquired absence of other specified parts of digestive tract; Z90.79 Acquired absence of other genital organ(s); Z79.1 Long term (current) use of non-steroidal anti-inflammatories (NSAID); Z79.84 Long term (current) use of oral hypoglycemic drugs; Z79.82 Long term (current) use of aspirin; Z79.899 Other long term (current) drug therapy
CPT/HCPCS: 52281; J2250; J1100; J0690; J2405; J2003; J3010; J2704; J2371